=== PATIENT | male | born 1985 | race Caucasian/White ===

== ENCOUNTER 2017-05-03 06:58 | Day surgery (SDC) | payer BC ==
[2017-05-01 16:27] VITALS: BP 133/95
[2017-05-01 16:41] LABS: APPEARANCE,URINE Clear (CLEAR); BILIRUBIN,URINE Negative (NEGATIVE); COLOR,URINE Yellow (YELLOW); GLUCOSE, URINE (UA) Negative (NEGATIVE); KETONES,URINE Negative (NEGATIVE); LEUKOCYTE ESTERASE ,URINE Negative (NEGATIVE); NITRATE,URINE Negative (NEGATIVE); OCCULT BLOOD,URINE Negative (NEGATIVE); PROTEIN,URINE Negative (NEGATIVE)
[2017-05-01 16:41] LABS: BASOPHILS % (AUTO) 0.8 % (0.0-5.0); EOSINOPHILS % (AUTO) 1.3 % (0.0-8.0); HEMATOCRIT 46.7 % (42-54); LYMPHOCYTES % (AUTO) 21.8 % (21.0-51.0); MEAN CORPUSCULAR HEMOGLOBIN 30.2 pg (27.0-33.0); MEAN CORPUSCULAR HGB CONC 34.7 g/dL (32.0-36.0); MONOCYTES % (AUTO) 11.8 % (3.0-13.0); NEUTROPHILS % (AUTO) 64.3 % (40.0-77.0); PLATELET COUNT (AUTO) 258 K/uL (130-400); RED BLOOD CELL COUNT(AUTO) 5.37 MIL/uL (4.50-6.20); RED CELL DISTRIBUTION WIDTH 14.1 % (11.0-15.5); WHITE BLOOD COUNT (AUTO) 10.7 K/uL (4.8-10.8)
[2017-05-03] VITALS (14 sets, daily range): BP systolic 115–138; BP diastolic 58–88
[~2017-05-03] VITALS: Ht 175.3 cm; Wt 98.0 kg
[~2017-05-03 06:58] MED LIST: CEFAZOLIN SODIUM 1 GM VIAL IVP SCH
[2017-05-03] MEDS ORDERED: LACTATED RINGERS 1000ML 1,000 ML IV ONE (07:39)
[2017-05-03] MEDS ORDERED: MIDAZOLAM HCL 1 MG/ML 2ML VIAL ONE (08:35)
[2017-05-03] MEDS ORDERED: PROPOFOL 10 MG/ML 20ML VIAL IV ONE (08:36)
[2017-05-03] MEDS ORDERED: FENTANYL CITRATE PF 50 MCG/1 ML 2ML VIAL ONE (08:36)
[2017-05-03] MEDS ORDERED: DEXAMETHASONE SOD PHOSPHATE 10MG/ML 1ML VIAL ONE (09:12)
[2017-05-03] MEDS ORDERED: ONDANSETRON HCL MDV 20ML 2 MG/ML VIAL ONE (09:12)
[2017-05-03] MEDS ORDERED: MEPERIDINE-PF 25 MG/ML SYG ONE (10:13)
== END 2017-05-03 12:15 | disposition home or self-care (01) ==
LOC: DAH 06:58
PROVIDERS: ATTEND Surgery
DX: K40.90 Unilateral inguinal hernia, without obstruction or gangrene, not specified as recurrent (principal); Z68.32 Body mass index [BMI] 32.0-32.9, adult; E66.9 Obesity, unspecified
CPT/HCPCS: 36415; 49505; 81003; 85025; A4450; A4452; A4930; C1729; C1781; J1100; J2175; J2250; J2704; J3010; J7030; J7120